=== PATIENT | male | born 1980 | race Hispanic/Latino ===

== ENCOUNTER → 2023-06-27 | Emergency (ER) | payer SELFPAY ==
[~2023-06-27] MED LIST: IBUPROFEN 200 MG TAB PO ONE; dexAMETHasone 10 MG/ML VIAL ONE
--- OUTSIDE RECORDS SUMMARY | 2023-06-27 15:16 | XMS REPORT | Continuity of Care Document ---
Author Name Unknown Address [address] [place] [address] [place] [address] thconnect Address [address] [place] [address] [address] [place] [address] Care Team Providers Care Administrative Aide Name Role Phone Unavailable Unavailable Unavailable
--- NOTE | 2023-06-27 16:09 | ER ---
Nurse's Notes [facility] Name: London Pisano Age: 43 yrs Sex: Male : 1980 Arrival Date: 06/27/2023 Time: 15:12 Bed IW2 Private MD: Diagnosis: Streptococcal pharyngitis Presentation: 06/27 15:25 Chief complaint: Fever, chills, sore throat, and malaise x 2 days. Spouse has strep. hb Coronavirus screen: At this time, the client does not indicate any symptoms associated with coronavirus-19. Ebola Screen: No symptoms or risks identified at this time. Initial Sepsis Screen: Does the patient meet any 2 criteria? No. Patient's initial sepsis screen is negative. Does the patient have a suspected source of infection? No. Patient's initial sepsis screen is negative. Risk Assessment: Do you want to hurt yourself or someone else? Patient reports no desire to harm self or others. Onset of symptoms was June 25, 2023. 15:25 Method Of Arrival: Ambulatory hb 15:25 Acuity: DIMITRY 3 hb Triage Assessment: 15:26 General: Appears in no apparent distress. Behavior is calm, cooperative. Pain: Pain hb currently is 5 out of 10 on a pain scale. EENT: Reports pain when swallowing. Neuro: Level of Consciousness is awake, alert, obeys commands, Oriented to person, place, time, situation. Cardiovascular: Patient's skin is warm and dry. Respiratory: Respiratory effort is even, unlabored, Respiratory pattern is regular, symmetrical. Historical: - Allergies: 15:27 No Known Allergies; hb - Home Meds: 15:27 None [Active]; hb - PMHx: 15:27 None; hb - PSHx: 15:27 None; hb - Immunization history:: Adult Immunizations up to date. - Social history:: Smoking status: Patient denies any tobacco usage or history of. Screenin:00 [facility] ED Fall Risk Assessment (Adult) Score/Fall Risk Level 0 - 2 = Low Risk hb Oriented to surroundings, Maintained a safe environment. Abuse screen: Denies threats or abuse. Denies injuries from another. Nutritional screening: No deficits noted. Tuberculosis screening: No symptoms or risk factors identified. Assessment: 16:32 General: See triage assessment.. hb Vital Signs: 15:25 BP 146 / 106; Pulse 136; Resp 20; Temp 99(TE); Pulse Ox 100% on R/A; Weight 127.01 kg; hb Height 5 ft. 1 in. ; Pain 5/10; 15:25 Body Mass Index 52.90 (127.01 kg, 154.94 cm) hb 15:25 Pain Scale: Adult hb ED Course: 15:14 Patient arrived in ED. ts1 15:15 Dara Gilbert FNP-C is [facility]. kb 15:15 Kaushik Delgado MD is Attending Physician. kb 15:27 Triage completed. hb 15:27 Arm band placed on. hb 15:40 Patient has correct armband on for positive identification. Provided Education on: hb tests, result times. 15:40 No provider procedures requiring assistance completed. Patient did not have IV access hb during this emergency room visit. Administered Medications: 15:39 Drug: Ibuprofen PO 800 mg PO once Route: PO; hb 15:40 Drug: Dexamethasone IM 10 mg IM once Route: IM; Site: right deltoid; hb Medication: 16:32 VIS not applicable for this client. hb Outcome: 16:09 Discharge ordered by . kb 16:31 Discharged to home ambulatory, hb 16:31 Condition: stable 16:31 Discharge instructions given to patient, Instructed on discharge instructions, follow up and referral plans. medication usage, Demonstrated understanding of instructions, follow-up care, medications, Prescriptions given X 1, 16:32 Patient left the ED. hb Signatures: Dara Gilbert FNP-C FNP-Ckb Baxter, Heather, RN RN Rakel Banks [facility] ts1 Corrections: (The following items were deleted from the chart) 15:28 15:25 Chief complaint: Fever, chills, sore throat, and malaise x 3 days. Spouse has hb strep. hb
--- NOTE | 2023-06-27 16:09 | EDPHYS ---
Physician Documentation [facility] Name: London Pisano Age: 43 yrs Sex: Male : 1980 Arrival Date: 06/27/2023 Time: 15:12 Bed IW2 Private MD: ED Physician Kaushik Delgado HPI: 06/27 16:07 This 43 yrs old Male presents to ER via Ambulatory with complaints of Sore kb Throat, Fever, General Weakness. 16:07 Patient is a 43-year-old male with no medical history presents for fever and sore kb throat that started 2 days ago. States was recently diagnosed with strep throat.. Historical: - Allergies: 15:27 No Known Allergies; hb - Home Meds: 15:27 None [Active]; hb - PMHx: 15:27 None; hb - PSHx: 15:27 None; hb - Immunization history:: Adult Immunizations up to date. - Social history:: Smoking status: Patient denies any tobacco usage or history of. ROS: 16:07 Abdomen/GI: Negative for abdominal pain, nausea, vomiting, diarrhea, and constipation, kb 16:07 Constitutional: Positive for fever, 16:07 ENT: Positive for sore throat, 16:07 Neuro: Positive for headache, 16:07 All other systems are negative, Exam: 16:07 Constitutional: This is a well developed, well nourished patient who is awake, alert, kb and in no acute distress. Head/Face: Normocephalic, atraumatic. Cardiovascular: Regular rate Respiratory: Respirations even and unlabored. No increased work of breathing. Talking in full sentences Skin: Warm, dry with normal turgor. Normal color. MS/ Extremity: Pulses equal, no cyanosis. Neurovascular intact. Full, normal range of motion. Neuro: Awake and alert, GCS 15, oriented to person, place, time, and situation. Moves all extremities. Normal gait. 16:07 ENT: Posterior pharynx: Airway: normal, no evidence of obstruction, Tonsils: bilaterally enlarged, with erythema, Uvula: normal, midline, swelling, that is moderate, erythema, that is moderate, Vital Signs: 15:25 BP 146 / 106; Pulse 136; Resp 20; Temp 99(TE); Pulse Ox 100% on R/A; Weight 127.01 kg; hb Height 5 ft. 1 in. ; Pain 5/10; 15:25 Body Mass Index 52.90 (127.01 kg, 154.94 cm) hb 15:25 Pain Scale: Adult hb MDM: 15:29 Patient medically screened. kb 16:08 Differential diagnosis: mononucleosis, pharyngitis, tonsillitis, Strep. Data reviewed: kb vital signs, nurses notes. Counseling: I had a detailed discussion with the patient and/or guardian regarding the historical points, exam findings, and any diagnostic results supporting the discharge/admit diagnosis, lab results, the need for outpatient follow up, a family practitioner, to return to the emergency department if symptoms worsen or persist or if there are any questions or concerns that arise at home. 06/27 16:06 Order name: Group A Streptococcus Rapid Sc; Complete Time: 16:07 EDMS Administered Medications: 15:39 Drug: Ibuprofen PO 800 mg PO once Route: PO; hb 15:40 Drug: Dexamethasone IM 10 mg IM once Route: IM; Site: right deltoid; hb Disposition: 17:14 Co-signature as Attending Physician, Kaushik Delgado MD I agree with the assessment and kdr plan of care. Disposition Summary: 06/27/23 16:09 Discharge Ordered Notes: Location: Home kb Condition: Stable kb Diagnosis - Streptococcal pharyngitis kb Followup: kb - With: Emergency Department - When: As needed - Reason: Worsening of condition Followup: kb - With: Private Physician - When: 2 - 3 days - Reason: Recheck today's complaints, Continuance of care, Re-evaluation by your physician Discharge Instructions: - Discharge Summary Sheet kb - Strep Throat, Adult, [id number] kb Forms: - Medication Reconciliation Form kb - Thank You Letter kb - Antibiotic Education kb - Prescription Opioid Use kb - Patient Portal Instructions kb - Leadership Thank You Letter kb Prescriptions: - Augmentin 875-125 mg Oral Tablet - take 1 tablet ORAL route every 12 hours for 10 days; 20 tablet; Refills: 0, kb Product Selection Permitted Signatures: Dispatcher [employer] EDMS Dara Gilbert, Kaushik Leal MD MD kdr Baxter, Heather, RN RN hb
[2023-06-27 17:25] VITALS: BP 146/106; TEMP 99; O2SAT 100
== END ==
LOC: ER 15:12
DX: J02.0 Streptococcal pharyngitis (principal)
CPT/HCPCS: 87081; 96372; 99284; J1100